=== PATIENT | female | born 1970 | race Hispanic/Latino ===

== ENCOUNTER 2017-08-08 17:22 | Emergency (ER) | payer SELFPAY ==
[2017-08-08] MEDS ORDERED: MORPHINE SULFATE 2 MG/ML 1ML SYG ONE (18:00)
[2017-08-08] MEDS ORDERED: ONDANSETRON HCL 4 MG/2 ML VIAL ONE (18:00)
[2017-08-08] MEDS ORDERED: KETOROLAC TROMETHAMINE 30MG/ML ONE (18:26)
== END 2017-08-08 18:51 | disposition home or self-care (01) ==
LOC: EDH 17:22
DX: J20.9 Acute bronchitis, unspecified (principal); E78.5 Hyperlipidemia, unspecified; E11.9 Type 2 diabetes mellitus without complications
CPT/HCPCS: 71046; 82948; 87804 ×2; 93005; 96372; 99285; J1885; J2405

== ENCOUNTER 2024-11-15 13:23 | Emergency (ER) | payer SELFPAY ==
[~2024-11-15] VITALS: Ht 149.9 cm; Wt 63.0 kg
[2024-11-15 14:21] LABS: BASOPHILS # (AUTO) 0.04 K/uL (0.00-0.20); BASOPHILS % (AUTO) 0.5 % (0.0-5.0); EOSINOPHILS # (AUTO) 0.06 K/uL (0.00-0.70); EOSINOPHILS % (AUTO) 0.7 % (0.0-8.0); HEMATOCRIT 41.7 % (36-48); IMMATURE GRANULOCYTE ABSOLUTE 0.06 K/uL (0-1); LYMPHOCYTES # (AUTO) 1.3 K/uL (1.0-4.8); LYMPHOCYTES % (AUTO) 15.3 % (21.0-51.0); MEAN CORPUSCULAR HEMOGLOBIN 31.1 pg (27.0-33.0); MEAN CORPUSCULAR HGB CONC 34.8 g/dL (32.0-36.0); MEAN CORPUSCULAR VOLUME 89.5 fL (79-99); MONOCYTES # (AUTO) 0.5 K/uL (0.1-1.0); MONOCYTES % (AUTO) 5.3 % (3.0-13.0); NEUTROPHILS # (AUTO) 6.6 K/uL (1.8-7.7); NEUTROPHILS % (AUTO) 77.5 % (40.0-77.0); PLATELET COUNT (AUTO) 304 K/uL (130-400); RED BLOOD CELL COUNT(AUTO) 4.66 MIL/uL (4.00-5.50); RED CELL DISTRIBUTION WIDTH 12.4 % (11.0-15.5); WHITE BLOOD COUNT (AUTO) 8.6 K/uL (4.8-10.8)
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
[2024-11-15 14:29] LABS: CREATININE 0.7 mg/dL (0.5-1.0); POTASSIUM 3.9 mmol/L (3.5-5.1)
--- NOTE | 2024-11-15 14:44 | NUR ---
PATIENT IN ER LOBBY, PENDING IV SITE & CONSENT FOR CT EXAM.
[2024-11-15] MEDS ORDERED: IOHEXOL-350 75 ML VIAL IV ONE (15:19)
[2024-11-15] MEDS: acetaMINOPHEN 500 MG TABLET PO ONE (15:42)
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
[2024-11-15 16:31] VITALS: BP 151/87; PULSE 100; RESP 18; TEMP 98; O2SAT 98
== END 2024-11-15 16:38 | disposition home or self-care (01) ==
LOC: EDH 13:23
DX: M54.50 Low back pain, unspecified (principal); E11.9 Type 2 diabetes mellitus without complications; I10 Essential (primary) hypertension
CPT/HCPCS: 99285; 74177; 80048; 85025; 36415; Q9967

== ENCOUNTER 2025-06-03 09:22 | Emergency (ER) | payer SELFPAY ==
[~2025-06-03] VITALS: Ht 162.6 cm; Wt 62.6 kg
[2025-06-03 09:47] LABS: IMMATURE GRANULOCYTE ABSOLUTE 0.01 K/uL (0-1); NUCLEATED RED BLOOD CELLS 0.0 % (0.0-0.19); PLATELET COUNT (AUTO) 264 K/uL (130-400); RED BLOOD CELL COUNT(AUTO) 4.58 MIL/uL (4.00-5.50); RED CELL DISTRIBUTION WIDTH 12.1 % (11.0-15.5); WHITE BLOOD COUNT (AUTO) 6.2 K/uL (4.8-10.8)
[2025-06-03 09:56] LABS: APPEARANCE,URINE CLEAR (CLEAR); GLUCOSE, URINE (UA) >=1000 mg/dL (NEGATIVE); LEUKOCYTE ESTERASE ,URINE NEGATIVE Leu/uL (NEGATIVE); NITRATE,URINE POSITIVE (NEGATIVE); OCCULT BLOOD,URINE NEGATIVE (NEGATIVE)
[2025-06-03 09:57] LABS: CREATININE 0.7 mg/dL (0.5-1.0); GLOMERULAR FILTR. RATE CALC 104.0 mL/min (>90); GLUCOSE,RANDOM 380.0 mg/dL (70-105); SODIUM SERUM 134.0 mmol/L (136-145); UREA NITROGEN, BLOOD 14.0 mg/dL (7-18)
[2025-06-03 10:01] LABS: ASPARTATE AMINOTRANSFERASE 13.0 U/L (10-37); TOTAL PROTEIN, SERUM 7.5 g/dL (6.0-8.3)
[2025-06-03 10:10] LABS: ADD UA MICROSCOPIC YES
[2025-06-03] MEDS: 0.9%NACL 1000ML 1,000 ML IV ONE (10:37)
[2025-06-03 10:49] LABS: YEAST,URINE BUDDING Few /HPF (None Seen)
--- NOTE | 2025-06-03 11:31 | HMCIMG ---
EXAM: CT Abdomen and Pelvis Without IV contrast CLINICAL HISTORY: left flank pain TECHNIQUE: Axial computed tomography images of the abdomen and pelvis without intravenous contrast. CONTRAST: No IV contrast. COMPARISON: None provided. FINDINGS: LUNG BASES: The lung bases appear clear. No pleural effusions are seen. LIVER: Unremarkable. GALLBLADDER AND BILE DUCTS: Subcentimeter radioopaque gallstones are seen. No biliary ductal dilatation is evident. PANCREAS: Unremarkable. SPLEEN: Unremarkable. ADRENAL GLANDS: Unremarkable. KIDNEYS, URETERS, AND BLADDER: The kidneys appear within normal limits. There is no hydronephrosis or hydroureter. No urinary calculi are seen. STOMACH AND BOWEL: Unremarkable appearance of the stomach and bowel. No evidence of bowel obstruction. No evidence suggesting enteritis or colitis. Large amount of stool in the colon, consistent with constipation. APPENDIX: Normal appendix. PERITONEUM: No free fluid. No free air. LYMPH NODES: No lymphadenopathy is evident. REPRODUCTIVE: Unremarkable as visualized. VASCULATURE: No evidence of abdominal aortic aneurysm. BONES: No aggressive appearing osseous lesion. No acute osseous pathology evident. IMPRESSION: No acute intra-abdominal or pelvic abnormality. Constipation. Subcentimeter gallstones. /[place]
[2025-06-03] MEDS ORDERED: NAPR-1196 PO (12:00)
--- NOTE | 2025-06-03 12:00 | ERN ---
ED Note History of Present Illness Stated Complaint: LEFT FLANK PAIN, HEMATURIA Chief Complaint: Flank Pain Time Seen by MD: 09:28 Dictation: 54-year-old female presenting to the emergency department with left flank pain and discoloration of urine, symptoms have been going off for the past few days worse this morning. Patient reports similar episodes in the past. No chest pain shortness of breath or fevers. Allergies: Coded Allergies: No Known Drug Allergies (Unverified Allergy, Unknown, 11/15/24) Past Medical History Past Medical History: Diabetes-Type II, High Cholesterol, Hypertension Surgical History: BTL Review of System Dictation Constitutional: Negative for fever,chills, and weight loss Eyes: Negative for injury, pain,redness, and discharge ENT: Negative for injury,pain or swelling Cardiovascular: Negative for chest pain, palpitations, and edema Respiratory: Negative for shortness of breath, cough, and wheezing, Abdomen/GI: Negative for abdominal pain, nausea, vomiting, diarrhea, and constipation Back: Per HPI : Per HPI MS/Extremity: Negative for injury and deformity Skin: Negative for rash, and discoloration Neuro: Negative for headache, weakness, numbness, tingling, and seizure Psych: Negative for suicide ideation, homicidal ideation, and hallucinations Initial Vital Sign VS Vital Signs Date Time Temp Pulse Resp B/P (MAP) Pulse Ox O2 Delivery O2 Flow Rate FiO2 06/03/25 09:23 98.1 101 16 155/69 99 Room Air 0 06/03/25 09:43 21 Physical Exam Dictation General: awake, alert, NAD Head/Face: Normocephalic, atraumatic Eyes: PERRL, EOMI, vision at baseline ENT: oral cavity clear, TMs clear, no signs of infection Neck: Trachea midline, supple, no nuchal rigidity Cardiovascular: RRR, normal S1/S2, No MRGs, no JVD Respiratory: CTAB, no respiratory distress, No rales or wheezes Abdomen: Soft, non-tender, non-distended, normal bowel sounds, no guarding or rebound. Skin: Warm, dry, normal turgor, no rash MS/Extremity: Pulses equal, no cyanosis, neurovascular intact, FROM Neuro: COAx4, GCS 15, strength 5/5, CN 2-12 intact, normal cerebellar exam, normal gait, Psych: Normal behavior, mood, and affect normal Results (Laboratory/Radiology) Laboratory/Radiology Laboratory Tests Test 06/03/25 09:24 06/03/25 09:30 White Blood Count 6.2 K/uL (4.8-10.8) Red Blood Count 4.58 MIL/uL (4.00-5.50) Hemoglobin 13.5 g/dL (12.0-16.0) Hematocrit 40.5 % (36-48) Mean Corpuscular Volume 88.4 fL (79-99) Mean Corpuscular Hemoglobin 29.5 pg (27.0-33.0) Mean Corpuscular Hemoglobin Concent 33.3 g/dL (32.0-36.0) Red Cell Distribution Width 12.1 % (11.0-15.5) Platelet Count 264 K/uL (130-400) Mean Platelet Volume 10.7 fL (7.5-10.5) H Immature Granulocyte % (Auto) 0.2 % (0-1) Neutrophils (%) (Auto) 66.2 % (40.0-77.0) Lymphocytes (%) (Auto) 26.2 % (21.0-51.0) Monocytes (%) (Auto) 5.5 % (3.0-13.0) Eosinophils (%) (Auto) 1.4 % (0.0-8.0) Basophils (%) (Auto) 0.5 % (0.0-5.0) Neutrophils # (Auto) 4.1 K/uL (1.8-7.7) Lymphocytes # (Auto) 1.6 K/uL (1.0-4.8) Monocytes # (Auto) 0.3 K/uL (0.1-1.0) Eosinophils # (Auto) 0.09 K/uL (0.00-0.70) Basophils # (Auto) 0.03 K/uL (0.00-0.20) Absolute Immature Granulocyte (auto 0.01 K/uL (0-1) Nucleated Red Blood Cells 0.0 % (0.0-0.19) Sodium Level 134 mmol/L (136-145) L Potassium Level 3.8 mmol/L (3.5-5.1) Chloride Level 99 mmol/L (101-111) L Carbon Dioxide Level 27 mmol/L (21-32) Blood Urea Nitrogen 14 mg/dL (7-18) Creatinine 0.7 mg/dL (0.5-1.0) Glomerular Filtration Rate Calc 104 mL/min (>90) Random Glucose 380 mg/dL (70-105) H Total Calcium 8.8 mg/dL (8.5-10.1) Total Bilirubin 0.4 mg/dL (0.2-1.0) Direct Bilirubin 0.1 mg/dL (0.0-0.3) Aspartate Amino Transf (AST/SGOT) 13 U/L (10-37) Alanine Aminotransferase (ALT/SGPT) 20 U/L (12-78) Alkaline Phosphatase 187 U/L (50-136) H Total Protein 7.5 g/dL (6.0-8.3) Albumin 3.4 g/dL (3.5-5.0) L Urine Color PINK (YELLOW) H Urine Appearance CLEAR (CLEAR) Urine pH 5.5 (5.0-8.0) Urine Specific [place] 1.020 (1.001-1.031) Urine Protein NEGATIVE mg/dL (NEGATIVE) Urine Glucose (UA) >=1000 mg/dL (NEGATIVE) H Urine Ketones 5 mg/dL (NEGATIVE) H Urine Occult Blood NEGATIVE (NEGATIVE) Urine Nitrate POSITIVE (NEGATIVE) H Urine Bilirubin NEGATIVE mg/dL (NEGATIVE) Urine Urobilinogen 0.2 mg/dL (0.2-1.0) Urine Leukocyte Esterase NEGATIVE Javon/uL Urine RBC None Seen /HPF (0-1) Urine WBC 2-5 /HPF (0-1) H Urine Squamous Epithelial Cells 10-25 /HPF (0-2) Urine Bacteria Few /HPF (None Seen) Urine Yeast Few /HPF (None Seen) H Labs Reviewed?: Yes ED Course ED Course Orders Procedure Category Date Status Time Basic Metabolic Panel LAB 06/03/25 Complete 09:36 Cbc With Differential LAB 06/03/25 Complete 09:36 Hepatic Function Panel LAB 06/03/25 Complete 09:36 Urinalysis Profile LAB 06/03/25 Complete 09:36 Ct Abd/Pel Wo Con CT 06/03/25 Resulted Renal/Appy 09:36 Ketorolac PHA 06/03/25 Complete Tromethamine 15mg/Ml 09:36 Ondansetron 4mg Inj PHA 06/03/25 Complete (Zofran 4mg Inj) 09:36 0.9%Nacl 1000ml (Ns PHA 06/03/25 Complete 1000ml) 10:00 Culture Urine RAVI 06/03/25 In Process 10:11 Current Medications Medications (Trade) Dose Ordered Sig/Jero Route PRN Reason Start Time Stop Time Status Last Admin Dose Admin Ketorolac Tromethamine (toRADol) 15 mg ONCE STAT IV 06/03/25 09:36 06/03/25 09:41 DC 06/03/25 10:38 Ondansetron HCl (zoFRAN 4MG INJ) 4 mg ONCE STAT IVP 06/03/25 09:36 06/03/25 09:39 DC 06/03/25 10:37 Sodium Chloride 1,000 ml @ 0 mls/hr ONCE ONCE IV 06/03/25 10:00 06/03/25 10:01 DC 06/03/25 10:37 Vital Signs Date Time Temp Pulse Resp B/P (MAP) Pulse Ox O2 Delivery O2 Flow Rate FiO2 06/03/25 09:43 98.4 90 20 142/76 97 Room Air* 0 21 06/03/25 09:23 98.1 101 16 155/69 99 Room Air 0 Medical Decision Making MDM MDM: Differential diagnosis: Rationale: Tests considered and ordered secondary to shared decision making include: Previous outside records reviewed: Old ER visits. Risk of complication and/or morbidity or mortality of patient management: None Medications-Per medication reconciliation Need for hospitalization: Patient does not meet criteria for hospitalization. Need for emergency major/minor surgery: No There are no social concerns with this patient. Prescription drug management Prescriptions will include symptomatic care Patient's prior external medical records from other ER visits were reviewed by me as indicated. Prior testing and results from previous visits were reviewed. Prior tests were taken into account with medical decision making and resource utilization, independent historian/historians were used to obtain complete medical history. I independently interpreted the test that were performed, results were reviewed by me and considered findings on radiology if ordered. Medical management and examination interpretation discussions were had by me with other qualified healthcare professionals as indicated for the patient's care. 54-year-old female with flank pain stable exam negative workup symptoms improved prescriptions given stable for discharge. DX & DISP Disposition: Discharge Departure Impression: Primary Impression: Left flank pain Condition: Stable Scripts Naproxen (Naproxen) 250 Mg Tablet 1 TAB PO BID for pain for 5 Days, #10 TAB 0 Refills Prov: WHIT SANTA MD 06/03/25 Referrals: SELF,REFERRAL (PCP) WHIT SANTA MD Jun 03, 2025 12:00
[2025-06-03 12:01] VITALS: BP 153/68; PULSE 66; RESP 18; TEMP 98; O2SAT 97
== END 2025-06-03 12:21 | disposition home or self-care (01) ==
LOC: EDH 09:22
DX: R10.A2 Flank pain, left side (principal); E11.9 Type 2 diabetes mellitus without complications; E78.00 Pure hypercholesterolemia, unspecified; I10 Essential (primary) hypertension
CPT/HCPCS: 99285; 74176; 96374; 96361; 96375; 80076; 80048; 85025; 87086; 81001; 36415; J1885; J7030; J2405